=== PATIENT | female | born 1990 | race Caucasian/White ===

== ENCOUNTER 2017-05-12 22:34 | Emergency (ER) | payer SELFPAY ==
[~2017-05-12] VITALS: Ht 167.6 cm; Wt 88.0 kg
[2017-05-12 22:36] VITALS: BP 137/98; PULSE 102; RESP 16; TEMP 98.5; O2SAT 97
--- NOTE | 2017-05-12 23:01 | PD ---
HPI Chief Complaint: Fall Time Seen by Provider: 22:56 Travel History International Travel<30 days: No Contact w/Intl Traveler<30days: No Traveled to known affect area: No History of Present Illness HPI 26-year-old female here with complaint of back pain. Patient slipped in the shower approximately 2 hours prior to arrival, landing on her back. She did not hit her head, no LOC. She denies any neck pain. Patient complains of pain in the back inferior to the scapula. This radiates across left, to right. She has not noticed any bruising. No loss of function. The pain is diffuse throughout the back and there is no one spot that is more tender than the next. Patient took some Excedrin prior to arrival which helped minimally. States " I don't want anything for pain, I just want to make sure nothing is wrong". PFSH Past Medical History Medical History: Denies Significant Hx Past Surgical History Surgical History: No Previous Surgery Social History Alcohol Use: Yes Tobacco Use: Yes Allergies-Medications (Allergen,Severity, Reaction): Coded Allergies: No Known Allergies (Unverified , 05/12/17) Reported Meds & Prescriptions Reported Meds & Active Scripts Active No Active Prescriptions or Reported Medications Review of Systems Except as stated in HPI: all other systems reviewed are Neg Physical Exam Narrative GENERAL: Well-appearing female, obese in no acute distress SKIN: Focused skin assessment warm/dry. HEAD: Normocephalic. EYES: No scleral icterus. No injection or drainage. ENT: Mucous membranes pink and moist. NECK: Supple without midline tenderness to palpation CARDIOVASCULAR: Regular rate and rhythm. RESPIRATORY: No accessory muscle use. GASTROINTESTINAL: Obese MUSCULOSKELETAL: No focal midline tenderness to palpation of thoracic or lumbar spine. Patient has diffuse tenderness to palpation of the back across the paraspinous muscles left and right in the low thoracic region. Out of 5 strength in the bilateral lower extremities, reflexes intact, normal gait. NEUROLOGICAL: Awake and alert. Normal speech. PSYCHIATRIC: Appropriate mood and affect; insight and judgment normal. Data Data Last Documented VS Vital Signs Date Time Temp Pulse Resp B/P Pulse Ox O2 Delivery O2 Flow Rate FiO2 05/12/17 22:36 98.5 102 16 137/98 97 Room Air MDM Medical Decision Making Medical Screen Exam Complete: Yes Emergency Medical Condition: Yes Medical Record Reviewed: Yes Differential Diagnosis 26-year-old female here with complaint of back pain after slip and fall. Differential includes strain, fracture, contusion, spasm Narrative Course Patient's examination is benign without any focal midline tenderness to palpation of the spine and I do not feel as though she warrants imaging. Patient will be reassured, conservative management and discharged home. Diagnosis Primary Impression: Back strain Qualified Code: S39.012A - Back strain, initial encounter Referrals: Primary Care Physician as needed Additional Instructions: Tylenol, ibuprofen, Aleve as needed for pain. Ice the affected area 20 minutes at a time 3-4 times daily. Med/Other Pt SpecificInfo: No Change to Meds Scripts No Active Prescriptions or Reported Meds Disposition: 01 DISCHARGE HOME Condition: Stable Libia Sun MD May 12, 2017 23:01
== END 2017-05-12 23:47 | disposition home or self-care (01) ==
LOC: NEPE 22:34
DX: S39.012A Strain of muscle, fascia and tendon of lower back, initial encounter (principal); W18.2XXA Fall in (into) shower or empty bathtub, initial encounter; Z72.0 Tobacco use
CPT/HCPCS: 99282

== ENCOUNTER 2017-09-03 08:59 | Emergency (ER) | payer OTHER ==
[~2017-09-03] VITALS: Ht 162.6 cm; Wt 100.0 kg
[2017-09-03 09:01] VITALS: BP 156/96; PULSE 97; RESP 17; TEMP 98.8; O2SAT 99
[2017-09-03] MEDS ORDERED: IBUPROFEN 800 MG TAB PO ONE (09:30)
--- NOTE | 2017-09-03 09:44 | PD ---
HPI Chief Complaint: Back/ Neck Pain or Injury Time Seen by Provider: 09:08 Travel History International Travel<30 days: No Contact w/Intl Traveler<30days: No Traveled to known affect area: No History of Present Illness HPI 18-year-old female presents to the emergency department complaining of mid back pain after mechanical fall that occurred this morning. Patient states that she tripped over a tile in her hotel room and fell back against the wall. Patient denies head trauma, LOC, dizziness, blurred vision. States her pain is mainly on the right thoracic area that increases with movement and decreases with rest. She is not taking any medication to relieve this discomfort at this time. Patient also denies numbness or tingling of the extremities, IV drug use , fever, chills, loss of bowel or bladder function, saddle anesthesia. Denies neck or lumbar pain at this time. PFSH Past Medical History ?: Not Social History Alcohol Use: Yes Tobacco Use: Yes Substance Use: No (pot) Allergies-Medications (Allergen,Severity, Reaction): Coded Allergies: No Known Allergies (Unverified Adverse Reaction, Unknown, 09/03/17) Reported Meds & Prescriptions Reported Meds & Active Scripts Active Ibuprofen 600 Mg Tab 600 Mg PO Q8H PRN 3 Days Review of Systems Except as stated in HPI: all other systems reviewed are Neg Physical Exam Narrative GENERAL: Well-developed well-nourished in mild distress SKIN: Focused skin assessment warm/dry. HEAD: Atraumatic. Normocephalic. EYES: Pupils equal and round. No scleral icterus. No injection or drainage. EOMI ENT: No nasal bleeding or discharge. Mucous membranes pink and moist. NECK: Trachea midline. No JVD. No midline tenderness, FROM CARDIOVASCULAR: Regular rate and rhythm. No murmur appreciated. RESPIRATORY: No accessory muscle use. Clear to auscultation. Breath sounds equal bilaterally. MUSCULOSKELETAL: No obvious deformities. No clubbing. No cyanosis. No edema. BACK: No CVA tenderness. No rash. mild TTP along thoracic spine, right greater than left. NEUROLOGICAL: Awake and alert. No obvious cranial nerve deficits. Motor grossly within normal limits. Normal speech. PSYCHIATRIC: Appropriate mood and affect; insight and judgment normal. Data Data Last Documented VS Vital Signs Date Time Temp Pulse Resp B/P (MAP) Pulse Ox O2 Delivery O2 Flow Rate FiO2 09/03/17 09:01 98.8 97 17 156/96 (116) 99 Room Air Orders Orders Chest, Single Ap (09/03/17 ) Ibuprofen (Motrin) (09/03/17 09:30) Ed Urine Pregnancytest Poc (09/03/17 09:16) Spine, Thoracic-Ap/Lat/Sw(3vw) (09/03/17 ) Ed Discharge Order (09/03/17 10:13) MDM Medical Decision Making Medical Screen Exam Complete: Yes Emergency Medical Condition: Yes Differential Diagnosis Thoracic contusion versus sprain versus strain versus fracture Narrative Course 18-year-old female presents to the emergency department complaining of mid back pain after mechanical fall that occurred this morning. Patient states that she tripped over a tile in her hotel room and fell back against the wall. Patient denies head trauma, LOC, dizziness, blurred vision. States her pain is mainly on the right thoracic area that increases with movement and decreases with rest. She is not taking any medication to relieve this discomfort at this time. Patient also denies numbness or tingling of the extremities, IV drug use , fever, chills, loss of bowel or bladder function, saddle anesthesia. Denies neck or lumbar pain at this time. Vital signs stable Physical exam- consistent with lumbar contusion without ecchymosis, crepitus or deformities. Neurovascularly intact. No red flags I offered patient muscle relaxers however, patient refused and preferred to stay with anti-inflammatories. Imaging studies- no acute process Patient be discharged with ibuprofen 600 mg 3 times a day when necessary pain. Advised to follow up with PCP for further treatment and evaluation. Advised to return to the emergency department for worsening symptoms. Diagnosis Primary Impression: Contusion Qualified Codes: S20.221A - Contusion of right back wall of thorax, initial encounter Referrals: [facility] Additional Instructions: Perform light stretches of the lower back and legs, and alternate heat and ice packs. If you develop increased pain, weakness, fever, chills, or bowel or bladder issues, return to the ED for further treatment and evaluation. Follow up with your primary care physician in 2-3 days. Scripts Ibuprofen (Ibuprofen) 600 Mg Tab 600 MG PO Q8H Y for PAIN for 3 Days, #12 TAB 0 Refills Prov: Dipak Desai MD 09/03/17 Disposition: 01 DISCHARGE HOME Condition: Stable Glenis Yee Sep 03, 2017 09:44
--- NOTE | 2017-09-03 09:59 | RADRPT ---
EXAM DATE/TIME: 09/03/2017 09:31 [facility] COMPARISON: No previous studies available for comparison. INDICATIONS : Fell onto wall this morning, pain right upper back , chest and side MEDICAL HISTORY : None. SURGICAL HISTORY : None. ENCOUNTER: Initial ACUITY: 1 day PAIN SCORE: 7/10 LOCATION: Right chest FINDINGS: A single view of the chest demonstrates the lungs to be symmetrically aerated without evidence of mas s, infiltrate or effusion. The cardiomediastinal contours are unremarkable. Osseous structures are intact. CONCLUSION: No acute disease. Sabino Najera MD on September 03, 2017 at 9:57 Board Certified Radiologist. This report was verified electronically.
--- NOTE | 2017-09-03 09:59 | RADRPT ---
EXAM DATE/TIME: 09/03/2017 09:34 [facility] COMPARISON: No previous studies available for comparison. INDICATIONS : Fell onto wall this morning, pain right upper back and side MEDICAL HISTORY : None. SURGICAL HISTORY : None. ENCOUNTER: Initial ACUITY: 1 day PAIN SCORE: 7/10 LOCATION: Bilateral thoracic spine FINDINGS: There is normal alignment of the thoracic vertebral bodies. Vertebral body height is maintained. No evidence of fracture or subluxation. Pedicles are intact at all levels. The paravertebral reflecti ons are not thickened. CONCLUSION: Unremarkable examination of the thoracic spine. Sabino Najera MD on September 03, 2017 at 9:57 Board Certified Radiologist. This report was verified electronically.
[2017-09-03] MEDS ORDERED: IBUP-232 PO (10:06)
== END 2017-09-03 10:46 | disposition home or self-care (01) ==
LOC: NEPD 08:59
DX: S20.221A Contusion of right back wall of thorax, initial encounter (principal); W01.0XXA Fall on same level from slipping, tripping and stumbling without subsequent striking against object, initial encounter; Y92.59 Other trade areas as the place of occurrence of the external cause
CPT/HCPCS: 71010; 72072; 84703; 99285